=== PATIENT | male | born 1995 | race Caucasian/White ===

== ENCOUNTER → 2021-08-18 | Emergency (ER) | payer OTHER ==
[~2021-08-18] VITALS: Ht 172.7 cm; Wt 63.5 kg
[~2021-08-18] MED LIST: ABILIFY10 MG PO; WELLBUTRIN SR150 MG PO
--- NOTE | 2021-08-21 14:55 | EKG ---
[facility] [address] [facility] [place], [place] [address] Signed Normal sinus rhythm Rightward axis Early repolarization Borderline ECG No previous ECGs available Confirmed by DELMY PADRON MD ([id number] on 08/21/2021 2:54:52 PM Electronically Signed By: DELMY PADRON MD 08/21/21 1455 PATIENT NAME: HAILEY DALLAS Electrocardiogram DATE OF : [birth year] PHYSICIAN: DELMY PADRON MD REPORT #: [id number] REPORT IS CONFIDENTIAL AND NOT TO BE RELEASED WITHOUT AUTHORIZATION
== END ==
LOC: ED 09:36 → EDBD 09:37 → ED 09:37
DX: R45.851 Suicidal ideations (principal); Z20.822 Contact with and (suspected) exposure to COVID-19; Z79.899 Other long term (current) drug therapy
CPT/HCPCS: 36415; 80053; 81001; 84443; 85025; 93005; 93010; 96372; 99285-25; C9803; G0480; J1630; J2060; U0003